=== PATIENT | male | born 1970 | race Caucasian/White ===

== ENCOUNTER → 2020-01-21 | Outpatient (REF) | payer BC ==
[2020-01-21 16:47] LABS: CREATININE, URINE 33.4 MG/DL; MALB URINE SIEMENS 19.5 MG/L; MAU/CREAT RATIO 58.3 MCG/MG (0.0-30.0)
== END ==
LOC: M LAB REF 15:03
PROVIDERS: ATTEND Nurse Practitioner Family
DX: E11.9 Type 2 diabetes mellitus without complications (principal)

== ENCOUNTER → 2022-05-31 | Outpatient (REF) | payer BC ==
[2022-05-31 19:28] LABS: MALB URINE SIEMENS 12.7 MG/L; MAU/CREAT RATIO 19.8 MCG/MG (0.0-30.0)
== END ==
LOC: M LAB REF 18:10
PROVIDERS: ATTEND Nurse Practitioner Family
DX: E11.9 Type 2 diabetes mellitus without complications (principal)

== ENCOUNTER → 2024-04-03 | Outpatient (REF) | payer BC ==
[2024-04-03 16:09] LABS: CREATININE, URINE 59.6 MG/DL; MAU/CREAT RATIO 67.1 MCG/MG (0.0-30.0)
== END ==
LOC: M LAB REF 15:05
PROVIDERS: ATTEND Nurse Practitioner Family
DX: E11.9 Type 2 diabetes mellitus without complications (principal)